=== PATIENT | female | born 1980 | race Caucasian/White ===

== ENCOUNTER 2020-10-18 11:00 | Outpatient (REF) | payer MEDICAID, SELFPAY ==
--- NOTE | 2020-10-18 11:46 | XR_ITS ---
EXAMINATION: XR LUMBOSACRAL SPINE CLINICAL INFORMATION: Low back pain. COMPARISON: None TECHNIQUE: Three views of the lumbosacral spine. FINDINGS: There is normal lumbar lordosis. The vertebral heights, alignment and disc heights are normal. There is no visible acute fracture, dislocation or lytic process seen. The paravertebral soft tissues are normal. SI joints are symmetrical and normal. XR/XR lumbar spine 2-3V IMPRESSION: Unremarkable lumbar spine exam.
[2020-10-18 12:41] LABS: MANUAL DIFF FLAG NO
[2020-10-18 12:49] LABS: Basophils Absolute Auto 0.1 X10*3/uL (0.0-0.2); Basophils Percent Auto 0.5 % (0-2); Eosinophils Absolute Auto 0.2 X10*3/uL (0.0-0.4); Eosinophils Percent Auto 2.4 % (0-4); Hematocrit 42.9 % (37-47); Hemoglobin 13.8 g/dl (12.0-16.0); Lymphocytes Absolute Auto 3.4 X10*3/uL (1.2-4.9); Lymphocytes Percent Auto 33.3 % (20-40); Mean Corpuscular HGB Conc 32.2 g/dl (31.0-35.0); Mean Corpuscular Hemoglobin 26.6 pg (27.0-33.0); Mean Corpuscular Volume 82.8 fL (80-98); Mean Platelet Volume 9.8 fL (9.4-12.3); Monocytes Absolute Auto 0.4 X10*3/uL (0.1-1.2); Neutrophils Percent Auto 58.8 % (45-73); Platelet Count 338 X10*3/uL (160-400); Red Blood Count 5.18 X10*6/uL (4.20-5.50); Red Cell Distribution Width 12.5 % (11.0-16.0); White Blood Count 10.2 X10*3/uL (4.8-10.8)
[2020-10-18 13:04] LABS: Alanine Aminotransferase 25 U/L (0-31); Albumin Level 3.7 g/dL (3.5-5.0); Alkaline Phosphatase 123 U/L (39-117); Aspartate Amino Transferase 22 U/L (5-31); Bilirubin Direct < 0.2 mg/dL (0.0-0.5); Bilirubin Total 0.4 mg/dL (0.0-1.0); Cholesterol 195 mg/dL; HDL Cholesterol 41 mg/dL; LDL Cholesterol Calculated 122 mg/dl; Total Protein 7.4 g/dL (6.5-8.0); Triglycerides 160 mg/dL
[2020-10-18 13:21] LABS: TSH reflex Free T4 1.72 mIU/mL (0.32-4.0); Vitamin D 25-OH Total 17.8 ng/mL (>30)
[2020-10-18 13:49] LABS: Estimated Average Glucose 171 mg/dL; Hemoglobin A1c % 7.6 %
[2020-10-19 04:05] LABS: ~HepC Num1 14.33 S/CO (0.00-0.79); ~Hepatitis C Antibody Reactive (Nonreactive)
[2021-01-16 11:47] LABS: HCV Log PCR <1.18 NOT DETECTED; HepC Viral Load <15 NOT DETECTED
== END 2020-10-18 11:01 | disposition home or self-care (01) ==
LOC: HO.LAB 11:00
PROVIDERS: PCP Internal Medicine; Visit Provider Internal Medicine
DX: B18.2 Chronic viral hepatitis C (principal); Z00.00 Encounter for general adult medical examination without abnormal findings; M54.5 Low back pain
CPT/HCPCS: 36415; 72100; 80061; 80076; 82306; 83036; 84443; 85025; 86803; 87522

== ENCOUNTER 2024-01-01 14:09 | Outpatient (REF) | payer MEDICAID, SELFPAY ==
--- NOTE | ~2024-01-01 | XR_ITS ---
EXAMINATION: XR CHEST CLINICAL INFORMATION: Recent community-acquired pneumonia, complains of recurrent dyspnea COMPARISON: Chest x-ray on 05/05/2016 TECHNIQUE: 2 views of the chest were obtained. FINDINGS: pulmonary vascularity. LUNGS: Extensive bilateral mid and lower lung airspace disease, most intense in the left midlung are seen. There is effacement of right hemidiaphragm and right lateral costophrenic angle by right pleural effusion tracking along the lateral right lower chest. No pneumothorax is seen. BONES: Bony skeleton is intact. XR/XR chest 2V IMPRESSION: 1. Interval development of Extensive bilateral mid and lower lung airspace disease, most intense in the left midlung, consistent with extensive bronchopneumonia. 2. Interval development of Small right pleural effusion. 3. Moderate cardiomegaly with pulmonary venous congestion.
== END 2024-01-01 14:10 | disposition home or self-care (01) ==
LOC: HO.HHCX 14:09
PROVIDERS: Visit Provider Internal Medicine
DX: J18.9 Pneumonia, unspecified organism (principal)
CPT/HCPCS: 71046